=== PATIENT | male | born 1980 | race Caucasian/White ===

== ENCOUNTER 2021-03-30 23:43 | Emergency (ER) | payer BC, SELFPAY ==
[2021-03-30 23:47] VITALS: BP 172/99; PULSE 90; RESP 16; TEMP 36.3; O2SAT 100
--- NOTE | 2021-03-31 01:41 | PC.NURSE ---
pt states hes deciding to leave at this time & states he isn't wanting to wait any longer. pt informed of risks of leaving, benefits of staying. pt informed he can always return with worsening symptoms/concerns. pt ambulated out of facility w/ steady gait at this time. refused exit vitals.
== END 2021-03-31 01:41 | disposition left against medical advice (07) ==
LOC: ANHED 03-31 01:50
DX: Z53.21 Procedure and treatment not carried out due to patient leaving prior to being seen by health care provider (principal)
CPT/HCPCS: 99199

== ENCOUNTER 2024-07-18 14:29 | Emergency (ER) | payer OTHER, SELFPAY ==
[2024-07-18] VITALS (15 sets, daily range): BP systolic 120–152; BP diastolic 77–90; PULSE 74–98; RESP 13–25; TEMP 36.3; O2SAT 95–98
--- NOTE | ~2024-07-18 | CT_ITS ---
CT abdomen pelvis w con Ordering provider: Jostin Plasencia MD History: 44 years Male with . LLQ pain . Comparison: None. Technique: CT abdomen and pelvis with IV and without oral contrast. Automated exposure control and it erative reconstruction technique were employed. The dose-length product was 994.96 mGy-cm. 100 mL Omn ipaque 350 was given IV. Findings: VISUALIZED LOWER CHEST: Dependent atelectatic changes. UPPER ABDOMINAL ORGANS: Liver: Fat infiltration. Gallbladder: Contracted. Spleen: Normal. Stomach/duodenum: Normal. Pancreas: Normal. Adrenals: Normal. Kidneys: Right renal cyst in the midpole measuring 4.6 x 4.1 cm. Tiny cyst in the left kidney upper p ole. PELVIC ORGANS: The bladder is normal. BOWEL AND MESENTERY: Colon: Mild sigmoid diverticulosis without diverticulitis. Normal appendix. Small Bowel: Normal. No obstruction. Peritoneum/mesentery: No free air or free fluid. No mesenteric lymphadenopathy. Panniculitis is seen in the mid abdominal mesentery. RETROPERITONEUM: Normal aorta. No retroperitoneal lymphadenopathy. MUSCULOSKELETAL: Superficial soft tissues: Small left inguinal fat containing hernia. The superficial soft tissues are normal. Bones: Spondylolisthesis at the level of L5-S1 with bilateral spondylolysis. Degenerative changes in the lower thoracic area. IMPRESSION: 1. Fat infiltration of the liver. 2. Panniculitis of the mesentery in the mid abdomen. 3. Right renal cyst. Reviewed, dictated and finalized at location A. ED RUBBER TENDER
[2024-07-18] MEDS: DICYCLOMINE HCL INJ 20 MG/2 ML VIAL IM (15:04)
[2024-07-18] MEDS: ONDANSETRON INJ 4 MG/2 ML VIAL IV PUSH (15:04)
[2024-07-18 15:06] LABS: Basophils Percent Auto 0.3 % (0.2-1.2); Eosinophils Absolute Auto 0.1 K/mm3 (0-0.3); Hematocrit 43.2 % (42.0-52.0); Immature Granulocyte Absolute 0.01 K/mm3 (0.00-0.031); Immature Granulocyte Percent A 0.2 % (0-0.5); Lymphocytes Absolute Auto 2.09 K/mm3 (0.9-3.2); Lymphocytes Percent Auto 33.3 % (18.3-44.2); Mean Corpuscular HGB Conc 34.7 g/dl (32-36); Mean Corpuscular Hemoglobin 30.9 pg (26-34); Mean Corpuscular Volume 88.9 fl (80-100); Mean Platelet Volume 10.5 fl (7.4-10.4); Monocytes Absolute Auto 0.6 K/mm3 (0.1-0.6); Monocytes Percent Auto 9.4 % (2.6-8.5); Neutrophils Absolute Auto 3.5 K/mm3 (1.3-6.7); Neutrophils Percent Auto 55.8 % (45.5-73.1); Platelet Count Result 205 k/mm3 (150-375); Red Blood Count 4.86 M/mm3 (4.6-6.20); Red Cell Distribution Width 12.9 % (11.5-14.5); White Blood Count 6.3 K/mm3 (4.5-10.0)
[2024-07-18 15:18] LABS: Alanine Aminotransferase 33 U/L (6-50); Albumin Level 4.4 g/dL (3.5-5.1); Alkaline Phosphatase 84 U/L (38-126); Anion Gap 9 mmol/L (4-12); Aspartate Amino Transferase 39 U/L (17-59); Bilirubin,Total 0.6 mg/dL (0.2-1.3); Blood Urea Nitrogen 24 mg/dL (9-20); Calcium 8.8 mg/dL (8.4-10.2); Carbon Dioxide 28 mmol/L (22-30); Chloride 103 mmol/L (98-107); Estimated CRCL calculation 110 ml/min; Estimated Glomerular Filt Rate > 60; Glucose 116 mg/dL (65-110); Lipase 124 U/L (23-300); Potassium 3.9 mmol/L (3.4-5.0); Sodium 140 mmol/L (137-145)
--- NOTE | 2024-07-18 15:23 | PC.NURSE ---
Pt states last oral intake around 1400 today
--- NOTE | 2024-07-18 15:23 | ED.ABDPAIN ---
HPI - Abdominal Pain General Chief Complaint: Abdominal Pain Stated Complaint: abdominal pain for 1-2 months Time Seen by Provider: 07/18/24 14:38 History of Present Illness HPI narrative: Patient is a 44-year-old male who presents ER with abdominal discomfort x1 month. Worsen over last couple days. Has not had a bowel movement in 1 day. Feels full in cramping and thinks that may have been worsened by eating over last couple days. No fevers or chills or sweats. No vomiting. He is scheduled to have a colonoscopy in 5 days. Cannot identify alleviating factors. Related Data Allergies Allergy/AdvReac Type Severity Reaction Status Date / Time No Known Allergies Allergy Verified 07/18/24 14:30 Review of Systems Review of Systems: All systems reviewed & are unremarkable except as noted in HPI and below Constitutional: Constitutional: Reports no additional constitutional complaints ENT: Reports system reviewed and no additional complaints, except as documented Cardiovascular: Cardiovascular: Reports no additional cardiovascular complaints Respiratory: Respiratory: Reports no additional respiratory complaints Gastrointestinal: Gastrointestinal: Reports no additional gastrointestinal complaints PMFSH Past Medical History Medical History (Updated 07/18/24 @ 16:53 by Jostin Plasencia MD) Anxiety Surgical History Surgical History (Updated 07/18/24 @ 15:24 by Jostin Plasencia MD) No pertinent past surgical history Exam Narrative: GENERAL: Well-appearing, well-nourished, and in no acute distress. HEAD: Normocephalic, atraumatic. ENT: Mucous membranes moist. CHEST: Clear to auscultation. No respiratory distress. HEART: Regular rate and rhythm. Normal peripheral pulses. ABDOMEN: Soft, nontender, nondistended. EXTREMITIES: Normal range of motion. No edema. SKIN: Warm, dry, no rash. NEURO: Alert and oriented x3. PSYCH: Normal mood and affect. Course Course Emergency Course: Patient resting comfortably. Informed of lab and imaging results. Discharge home with oral steroids. Follow-up with GI as previously scheduled. Vital Signs Vital signs: Vital Signs Temperature 97.4 F L 07/18/24 14:33 Pulse Rate 98 07/18/24 14:33 Respiratory Rate 18 07/18/24 14:33 Blood Pressure 152/79 H 07/18/24 14:33 Pulse Oximetry 98 07/18/24 14:33 Oxygen Delivery Room Air 07/18/24 14:33 Temperature 97.4 F L 07/18/24 14:33 Pulse Rate 88 07/18/24 15:01 Respiratory Rate 25 H 07/18/24 15:01 Blood Pressure 133/79 07/18/24 15:01 Pulse Oximetry 97 07/18/24 15:01 Oxygen Delivery Room Air 07/18/24 14:33 MDM - Abdominal Pain Lab Data 07/18/24 15:00 07/18/24 15:00 Labs: Lab Results 07/18/24 Range/Units 15:00 WBC 6.3 (4.5-10.0) K/mm3 RBC 4.86 (4.6-6.20) M/mm3 Hgb 15.0 (14.0-18.0) g/dL Hct 43.2 (42.0-52.0) % MCV 88.9 (80-100) fl MCH 30.9 (26-34) pg MCHC 34.7 (32-36) g/dl RDW 12.9 (11.5-14.5) % Plt Count 205 (150-375) k/mm3 MPV 10.5 H (7.4-10.4) fl Immature Gran % (Auto) 0.2 (0-0.5) % Neut % (Auto) 55.8 (45.5-73.1) % Lymph % (Auto) 33.3 (18.3-44.2) % [place] % (Auto) 9.4 H (2.6-8.5) % Eos % (Auto) 1.0 (0-4.4) % Baso % (Auto) 0.3 (0.2-1.2) % Lymph # (Auto) 2.09 (0.9-3.2) K/mm3 [place] # (Auto) 0.6 (0.1-0.6) K/mm3 Eos # (Auto) 0.1 (0-0.3) K/mm3 Baso # (Auto) 0.0 (0.0-0.1) K/mm3 Abs Immat Gran (auto) 0.01 (0.00-0.031) K/mm3 Absolute Neuts (auto) 3.5 (1.3-6.7) K/mm3 Absolute Nucleated RBC 0.000 (0.0-0.012) K/mm3 Nucleated RBC % 0.0 (0.0-0.2) % Sodium 140 (137-145) mmol/L Potassium 3.9 (3.4-5.0) mmol/L Chloride 103 (98-107) mmol/L Carbon Dioxide 28 (22-30) mmol/L Anion Gap 9 (4-12) mmol/L BUN 24 H (9-20) mg/dL Creatinine 1.00 (0.7-1.3) mg/dL Estim Creat Clear Calc 110 ml/min Estimated GFR > 60 (59 - ) Glucose 116 H (65-110) mg/dL Calcium 8.8 (8.4-10.2) mg/dL Total Bilirubin 0.6 (0.2-1.3) mg/dL AST 39 (17-59) U/L ALT 33 (6-50) U/L Alkaline Phosphatase 84 (38-126) U/L Total Protein 7.0 (6.3-8.2) g/dL Albumin 4.4 (3.5-5.1) g/dL Lipase 124 (23-300) U/L Imaging Data Radiologist's impression: ITS Impressions Abdomen/Pelvis CT 07/18/24 16:14 IMPRESSION: 1. Fat infiltration of the liver. 2. Panniculitis of the mesentery in the mid abdomen. 3. Right renal cyst. Discharge Plan Discharge Clinical Impression: Mesenteric panniculitis Patient Disposition: Home, Self-Care Condition: Stable Additional Instructions: You have inflammatory condition of your mesentery which will be treated with steroids. Follow up with GI. Return the ER if you have worsening pain. Prescriptions: New prednisone 50 mg tablet 50 mg PO DAILY Qty: 7 0RF Follow-up/Referrals: PHYSICIAN,ASSISTANT PROFESSOR OF DIETETICS [Primary Care Provider] - 1 Week
== END 2024-07-18 17:33 | disposition home or self-care (01) ==
PROVIDERS: Emergency Provider Emergency Medicine
DX: K65.4 Sclerosing mesenteritis (principal); K76.0 Fatty (change of) liver, not elsewhere classified; N28.1 Cyst of kidney, acquired
CPT/HCPCS: 36415; 74177; 80053; 83690; 85025; 96372; 96374; 99284; J0500; J2405; Q9967

== ENCOUNTER 2025-07-30 08:57 | Outpatient (CLI) | payer BC, SELFPAY ==
--- NOTE | ~2025-07-30 | XR_ITS ---
EXAM/PROCEDURE: XR small bowel follow through HISTORY: R14.0 - Abdominal distension (gaseous) COMPARISON: None available. TECHNIQUE: Small bowel follow-through series Number of images: 14 Contrast: 240 mL of barium solution ingested orally. FINDINGS: On the work ticket distributor image, moderate possibly large amount of stool extends to the cecum. Scattered loops of gas dilated small bowel. On postcontrast images, contrast flows quickly through the stomach into the mid to proximal small bowel in 15 minutes. At 30 minutes, contrast extends into the ileum. At 1.5 hours, contrast is present in the right hemicolon. No extravasation of contrast or evidence of obstruction. No large mass identified. IMPRESSION: Unremarkable small bowel series. Reviewed, dictated and finalized at location A. TTER
== END 2025-07-30 08:58 | disposition home or self-care (01) ==
PROVIDERS: Visit Provider Internal Medicine Gastroenterology
DX: R14.0 Abdominal distension (gaseous) (principal); R10.9 Unspecified abdominal pain
CPT/HCPCS: 74250